=== PATIENT | male | born 1960 | race Hispanic/Latino ===

== ENCOUNTER 2020-03-13 19:44 | Emergency (ER) | payer SELFPAY ==
--- NOTE | 2020-03-13 20:56 | Event Note ---
ED Screening Note Date of service: 03/13/20 Time: 20:55 ED Screening Note: Patient complains of seizure that occurred around 7 PM today Denies head trauma or head pain States compliance with Depakote This initial assessment/diagnostic orders/clinical plan/treatment(s) is/are subject to change based on patients health status, clinical progression and re- assessment by fellow clinical providers in the ED. Further treatment and workup at subsequent clinical providers discretion. Patient/guardian urged not to elope from the ED as their condition may be serious if not clinically assessed and managed. Initial orders include: Labs EKG
[2020-03-13 21:04] VITALS: BP 136/87
[2020-03-13 21:51] LABS: Basophils % (Auto) 0.7 % (0.0-1.8); Eosinophils # (Auto) 0.1 K/mm3 (0.0-0.4); Eosinophils % (Auto) 1.7 % (0.0-4.3); Hemoglobin 13.2 gm/dl (11.8-15.2); Lymphocytes % (Auto) 24.9 % (13.4-35.0); Mean Corpuscular HGB Conc 35 % (32-34); Mean Corpuscular Volume 94 fl (84-94); Monocytes # (Auto) 0.4 K/mm3 (0.0-0.8); Monocytes % (Auto) 9.1 % (0.0-7.3); Platelet Count 131 K/mm3 (140-440); Red Blood Count 4.05 M/mm3 (3.65-5.03); Red Cell Distribution Width 13.1 % (13.2-15.2)
[2020-03-13 22:10] LABS: Alanine Aminotransferase 11 units/L (7-56); Albumin 4.1 g/dL (3.9-5); BUN/Creatinine Ratio 15; Blood Urea Nitrogen 12 mg/dL (9-20); Calcium 9.5 mg/dL (8.4-10.2); Hemolysis Index 14
== END 2020-03-13 21:00 | disposition left against medical advice (07) ==
LOC: ED 19:44
DX: G40.909 Epilepsy, unspecified, not intractable, without status epilepticus (principal); Z53.21 Procedure and treatment not carried out due to patient leaving prior to being seen by health care provider
CPT/HCPCS: 36415; 80053; 80164; 83735; 85025

== ENCOUNTER 2020-05-19 12:53 | Emergency (ER) | payer SELFPAY ==
--- NOTE | 2020-05-19 13:40 | Emergency Department Report ---
Blank Doc - Documentation Documentation: 60-year-old male that presents with chest pain and shortness of breath. 1- This initial assessment/diagnostic orders/clinical plan/ treatment(s) is/are subject to change based on pt's health status, clinical progression and re- assessment by fellow clinical providers in the ED. Further treatment and workup at subsequent clinical provers discretion. Patient/guardians urged not to elope from ED as their condition may be serious if not clinically assessed and managed. 2-cardiac workup
--- NOTE | 2020-05-19 13:51 | XRay Report ---
CHEST 2 VIEWS INDICATION: Chest Pain. COMPARISON: None FINDINGS: SUPPORT DEVICES: None. HEART: Within normal limits. LUNGS/PLEURA: No acute air space or interstitial disease. No pneumothorax. ADDITIONAL FINDINGS: None. IMPRESSION: 1. No acute findings. Signer Name: King Xiong MD Signed: 05/19/2020 1:47 PM Workstation Name: [id number]
--- NOTE | 2020-05-19 14:12 | Emergency Department Report ---
ED General Adult HPI - General Chief complaint: Chest Pain Stated complaint: CHEST PAIN/THINKS HE HAD A STROKE Time Seen by Provider: 05/19/20 13:38 Source: patient Mode of arrival: Ambulatory Limitations: No Limitations - History of Present Illness Initial comments: The patient presents to the emergency department the chief complaint of chest pain that started on Tuesday and has been continuous since that time. Chest pain is located on left side of the chest and denies any radiation of chest pain. Patient states on Tuesday he also passed out. Patient states that he does not know how long he was blacked out. He denies shortness of breath, ab dominal pain, headache. -: Sudden Location: chest Radiation: non-radiation Severity scale (0 -10): 2 Consistency: constant Improves with: none Worsens with: none Associated Symptoms: denies other symptoms Treatments Prior to Arrival: none - Related Data Allergies Allergy/AdvReac Type Severity Reaction Status Date / Time Penicillins Allergy Hives Verified 05/19/20 13:01 ED Review of Systems ROS: Stated complaint: CHEST PAIN/THINKS HE HAD A STROKE Other details as noted in HPI Comment: All other systems reviewed and negative Constitutional: denies: chills, fever Eyes: denies: eye pain, eye discharge, vision change ENT: denies: ear pain, throat pain Respiratory: denies: cough, shortness of breath, wheezing Cardiovascular: chest pain. denies: palpitations Endocrine: no symptoms reported Gastrointestinal: denies: abdominal pain, nausea, diarrhea Genitourinary: denies: urgency, dysuria Musculoskeletal: denies: back pain, joint swelling, arthralgia Skin: denies: rash, lesions Neurological: denies: headache, weakness, paresthesias Psychiatric: denies: anxiety, depression Hematological/Lymphatic: denies: easy bleeding, easy bruising ED Past Medical Hx - Past Medical History Hx Seizures: Yes - Social History Smoking Status: Never Smoker ED Physical Exam - General Limitations: No Limitations General appearance: alert, in no apparent distress - Head Head exam: Present: atraumatic, normocephalic - Eye Eye exam: Present: normal appearance, PERRL, EOMI - ENT ENT exam: Present: mucous membranes moist - Neck Neck exam: Present: normal inspection - Respiratory Respiratory exam: Present: normal lung sounds bilaterally. Absent: respiratory distress - Cardiovascular Cardiovascular Exam: Present: regular rate, normal rhythm. Absent: systolic murmur, diastolic murmur, rubs, gallop - GI/Abdominal GI/Abdominal exam: Present: soft, normal bowel sounds. Absent: distended, tenderness - Rectal Rectal exam: Present: deferred - Extremities Exam Extremities exam: Present: normal inspection - Back Exam Back exam: Present: normal inspection - Neurological Exam Neurological exam: Present: alert, oriented X3, CN II-XII intact. Absent: motor sensory deficit - Psychiatric Psychiatric exam: Present: normal affect, normal mood - Skin Skin exam: Present: warm, dry, intact, normal color. Absent: rash ED Course Vital Signs 05/19/20 05/19/20 05/19/20 13:06 13:57 13:59 Temperature 98.7 F Pulse Rate 71 63 Respiratory 18 16 16 Rate Blood Pressure 135/90 Blood Pressure 143/84 [Left] O2 Sat by Pulse 97 100 Oximetry 05/19/20 05/19/20 15:26 16:56 Temperature Pulse Rate 57 L 77 Respiratory 16 18 Rate Blood Pressure Blood Pressure 143/77 137/84 [Left] O2 Sat by Pulse 99 98 Oximetry ED Medical Decision Making - Lab Data Result diagrams: 05/19/20 14:38 05/19/20 14:38 Lab Results 05/19/20 05/19/20 05/19/20 Range/Units 14:17 14:38 14:38 WBC 5.5 (4.5-11.0) K/mm3 RBC 4.48 (3.65-5.03) M/mm3 Hgb 14.0 (11.8-15.2) gm/dl Hct 41.2 (35.5-45.6) % MCV 92 (84-94) fl MCH 31 (28-32) pg MCHC 34 (32-34) % RDW 13.9 (13.2-15.2) % Plt Count 179 (140-440) K/mm3 Lymph % (Auto) 23.7 (13.4-35.0) % [place] % (Auto) 6.7 (0.0-7.3) % Eos % (Auto) 3.5 (0.0-4.3) % Baso % (Auto) 0.6 (0.0-1.8) % Lymph # (Auto) 1.3 (1.2-5.4) K/mm3 [place] # (Auto) 0.4 (0.0-0.8) K/mm3 Eos # (Auto) 0.2 (0.0-0.4) K/mm3 Baso # (Auto) 0.0 (0.0-0.1) K/mm3 Seg Neutrophils % 65.5 (40.0-70.0) % Seg Neutrophils # 3.6 (1.8-7.7) K/mm3 PT 14.9 (12.2-14.9) Sec. INR 1.17 H (0.87-1.13) APTT 29.7 (24.2-36.6) Sec. D-Dimer 222.97 (0-234) ng/mlDDU Sodium (137-145) mmol/L Potassium (3.6-5.0) mmol/L Chloride (98-107) mmol/L Carbon Dioxide (22-30) mmol/L Anion Gap mmol/L BUN (9-20) mg/dL Creatinine (0.8-1.3) mg/dL Estimated GFR ml/min BUN/Creatinine Ratio % Glucose (75-100) mg/dL Calcium (8.4-10.2) mg/dL Magnesium (1.7-2.3) mg/dL Total Bilirubin (0.1-1.2) mg/dL AST (5-40) units/L ALT (7-56) units/L Alkaline Phosphatase (35-129) units/L Troponin T (0.00-0.029) ng/mL Total Protein (6.3-8.2) g/dL Albumin (3.9-5) g/dL Albumin/Globulin Ratio % Urine Color Yellow (Yellow) Urine Turbidity Clear (Clear) Urine pH 6.0 (5.0-7.0) Ur Specific [place] 1.011 (1.003-1.030) Urine Protein <15 mg/dl (Negative) mg/dL Urine Glucose (UA) Neg (Negative) mg/dL Urine Ketones Neg (Negative) mg/dL Urine Blood Sm (Negative) Urine Nitrite Neg (Negative) Urine Bilirubin Neg (Negative) Urine Urobilinogen < 2.0 (<2.0) mg/dL Ur Leukocyte Esterase Neg (Negative) Urine WBC (Auto) 1.0 (0.0-6.0) /HPF Urine RBC (Auto) 3.0 (0.0-6.0) /HPF Urine Mucus Few /HPF 05/19/20 05/19/20 05/19/20 Range/Units 14:38 14:38 16:53 WBC (4.5-11.0) K/mm3 RBC (3.65-5.03) M/mm3 Hgb (11.8-15.2) gm/dl Hct (35.5-45.6) % MCV (84-94) fl MCH (28-32) pg MCHC (32-34) % RDW (13.2-15.2) % Plt Count (140-440) K/mm3 Lymph % (Auto) (13.4-35.0) % [place] % (Auto) (0.0-7.3) % Eos % (Auto) (0.0-4.3) % Baso % (Auto) (0.0-1.8) % Lymph # (Auto) (1.2-5.4) K/mm3 [place] # (Auto) (0.0-0.8) K/mm3 Eos # (Auto) (0.0-0.4) K/mm3 Baso # (Auto) (0.0-0.1) K/mm3 Seg Neutrophils % (40.0-70.0) % Seg Neutrophils # (1.8-7.7) K/mm3 PT (12.2-14.9) Sec. INR (0.87-1.13) APTT (24.2-36.6) Sec. D-Dimer (0-234) ng/mlDDU Sodium 141 (137-145) mmol/L Potassium 4.5 (3.6-5.0) mmol/L Chloride 105.5 (98-107) mmol/L Carbon Dioxide 32 H (22-30) mmol/L Anion Gap 8 mmol/L BUN 6 L (9-20) mg/dL Creatinine 0.7 L (0.8-1.3) mg/dL Estimated GFR > 60 ml/min BUN/Creatinine Ratio 9 % Glucose 95 (75-100) mg/dL Calcium 9.0 (8.4-10.2) mg/dL Magnesium 2.20 (1.7-2.3) mg/dL Total Bilirubin 0.40 (0.1-1.2) mg/dL AST 19 (5-40) units/L ALT 12 (7-56) units/L Alkaline Phosphatase 74 (35-129) units/L Troponin T < 0.010 < 0.010 (0.00-0.029) ng/mL Total Protein 6.9 (6.3-8.2) g/dL Albumin 4.1 (3.9-5) g/dL Albumin/Globulin Ratio 1.5 % Urine Color (Yellow) Urine Turbidity (Clear) Urine pH (5.0-7.0) Ur Specific [place] (1.003-1.030) Urine Protein (Negative) mg/dL Urine Glucose (UA) (Negative) mg/dL Urine Ketones (Negative) mg/dL Urine Blood (Negative) Urine Nitrite (Negative) Urine Bilirubin (Negative) Urine Urobilinogen (<2.0) mg/dL Ur Leukocyte Esterase (Negative) Urine WBC (Auto) (0.0-6.0) /HPF Urine RBC (Auto) (0.0-6.0) /HPF Urine Mucus /HPF - EKG Data -: EKG Interpreted by Nc EKG shows normal: sinus rhythm Rate: bradycardia - Radiology Data Radiology results: report reviewed - Medical Decision Making Discussed results with patient Critical care attestation.: If time is entered above; I have spent that time in minutes in the direct care of this critically ill patient, excluding procedure time. ED Disposition Clinical Impression: Nonspecific chest pain, Vasovagal episode Disposition: TO HOME OR SELFCARE Is pt being admited?: No Does the pt Need Aspirin: No Condition: Stable Instructions: Chest Pain (ED), Syncope (ED), Nonspecific Chest Pain, Adult, Syncope, [id number], Syncope Additional Instructions: return if worse Referrals: PRIMARY CARE, [Primary Care Provider] - 3-5 Days DAVID COX MD [Staff Physician] - 3-5 Days Time of Disposition: 17:46
--- NOTE | 2020-05-19 14:42 | Cat Scan Report ---
CT head/brain wo con INDICATION: MAIN. TECHNIQUE: Routine CT head. All CT scans at this location are performed using CT dose reduction for A YI by means of automated exposure control. COMPARISON: None. FINDINGS: Intracranial: Pinto-white matter differentiation is maintained. No intracranial hemorrhage. No extra a xial collection. No hydrocephalus. No herniation. Sinuses: Paranasal sinuses and mastoid air cells are essentially clear. Orbits: Globes are intact. Calvarium: No acute fracture. IMPRESSION: 1. No acute intracranial abnormality. Signer Name: Hal Swan MD Signed: 05/19/2020 2:37 PM Workstation Name: [id number]
--- NOTE | 2020-05-19 15:09 | XRay Report ---
ABDOMEN 1 VIEW 05/19/2020 2:01 PM INDICATION / CLINICAL INFORMATION: Chest and abdominal pain. COMPARISON: None available. FINDINGS: TUBES / LINES: None. BOWEL GAS PATTERN: There is a celv-hu-oknchraw amount of stool throughout the colon. I see no evidenc e of bowel obstruction or mass effect. FREE AIR / EXTRALUMINAL GAS: None. ADDITIONAL FINDINGS: There is mild to moderate lower lumbar spondylosis. IMPRESSION: No acute abnormality. Signer Name: Raudel Hernandez MD Signed: 05/19/2020 3:04 PM Workstation Name: [id number]
[2020-05-19 15:15] LABS: Basophils % (Auto) 0.6 % (0.0-1.8); Eosinophils # (Auto) 0.2 K/mm3 (0.0-0.4); Eosinophils % (Auto) 3.5 % (0.0-4.3); Hematocrit 41.2 % (35.5-45.6); Lymphocytes # (Auto) 1.3 K/mm3 (1.2-5.4); Lymphocytes % (Auto) 23.7 % (13.4-35.0); Mean Corpuscular HGB Conc 34 % (32-34); Mean Corpuscular Volume 92 fl (84-94); Monocytes # (Auto) 0.4 K/mm3 (0.0-0.8); Monocytes % (Auto) 6.7 % (0.0-7.3); Platelet Count 179 K/mm3 (140-440); Red Blood Count 4.48 M/mm3 (3.65-5.03); Red Cell Distribution Width 13.9 % (13.2-15.2)
[2020-05-19 15:25] LABS: INR 1.17 (0.87-1.13)
[2020-05-19 15:36] LABS: Bilirubin,Urine NEG (Negative); Blood,Urine SM (Negative); Color,Urine Yellow (Yellow); Mucus,Urine FEW /HPF; Protein,Urine <15 mg/dL mg/dL (Negative); Urobilinogen,Urine < 2.0 mg/dL (<2.0)
[2020-05-19 15:37] LABS: Partial Thromboplastin Time 29.7 Sec. (24.2-36.6)
[2020-05-19 15:39] LABS: Alanine Aminotransferase 12 units/L (7-56); Albumin 4.1 g/dL (3.9-5); Blood Urea Nitrogen 6 mg/dL (9-20); Hemolysis Index 4
[2020-05-19 15:50] LABS: BUN/Creatinine Ratio 9
[2020-05-19 18:08] VITALS: BP 125/86
== END 2020-05-19 18:08 | disposition home or self-care (01) ==
LOC: ED 12:53
DX: R55 Syncope and collapse (principal); R07.9 Chest pain, unspecified; Z88.0 Allergy status to penicillin; Z86.69 Personal history of other diseases of the nervous system and sense organs
CPT/HCPCS: 36415; 70450; 71046; 74018; 80053; 81001; 83735; 84484; 85025; 85379; 85610; 85730; 93005

== ENCOUNTER 2020-05-29 11:47 | Emergency (ER) | payer SELFPAY ==
[2020-05-29 11:55] VITALS: BP 152/91
--- NOTE | 2020-05-29 12:00 | Emergency Department Report ---
- General Chief Complaint: Fever Stated Complaint: FEVER Time Seen by Provider: 05/29/20 11:52 Source: patient Mode of arrival: Ambulatory Limitations: No Limitations - History of Present Illness Initial Comments: 60-year-old male with a past medical history of hypertension and seizure disorder presents to the ER today with complaints of URI symptoms. Patient states that his symptoms started yesterday. He reports nonproductive cough, rhinorrhea, nasal congestion and sore throat since yesterday. He denies any fever, chills, shortness of breath, wheezing, vomiting or diarrhea. He denies any ill contacts or recent travel. He denies any known COVID-19 contacts. He reports no GI or symptoms. MD Complaint: cough -: days(s) (1) - Related Data Previous Rx's Medication Instructions Recorded Last Taken Type Benzonatate [Tessalon Perles] 100 mg PO Q8HR PRN #30 capsule 05/29/20 Unknown Rx Cetirizine HCl [Zyrtec 10mg tab] 10 mg PO DAILY #15 tablet 05/29/20 Unknown Rx Allergies Allergy/AdvReac Type Severity Reaction Status Date / Time No Known Allergies Allergy Unverified 05/29/20 11:50 ED Review of Systems ROS: Stated complaint: FEVER Other details as noted in HPI Comment: All other systems reviewed and negative Constitutional: denies: chills, fever Eyes: denies: eye pain, eye discharge, vision change ENT: throat pain. denies: ear pain Respiratory: cough. denies: shortness of breath, SOB with exertion, SOB at rest, stridor, wheezing Cardiovascular: denies: chest pain, palpitations, dyspnea on exertion, edema, syncope, paroxysmal nocturnal dyspnea Gastrointestinal: denies: abdominal pain, nausea, vomiting, diarrhea, constipation, hematemesis, melena Musculoskeletal: denies: back pain, joint swelling, arthralgia Skin: denies: rash, lesions Neurological: denies: headache, weakness, paresthesias Psychiatric: denies: anxiety, depression ED Past Medical Hx - Past Medical History Previous Medical History?: No Hx Hypertension: Yes Hx Seizures: Yes - Surgical History Past Surgical History?: No - Social History Smoking Status: Never Smoker Substance Use Type: None - Medications Home Medications: Home Medications Medication Instructions Recorded Confirmed Last Taken Type Benzonatate [Tessalon Perles] 100 mg PO Q8HR PRN #30 capsule 05/29/20 Unknown Rx Cetirizine HCl [Zyrtec 10mg tab] 10 mg PO DAILY #15 tablet 05/29/20 Unknown Rx ED Physical Exam - General Limitations: No Limitations General appearance: alert, in no apparent distress - Head Head exam: Present: atraumatic, normocephalic, normal inspection - Eye Eye exam: Present: normal appearance, PERRL, EOMI Pupils: Present: normal accommodation - ENT ENT exam: Present: normal exam, mucous membranes moist - Neck Neck exam: Present: normal inspection, full ROM. Absent: meningismus - Respiratory Respiratory exam: Present: normal lung sounds bilaterally. Absent: respiratory distress - Cardiovascular Cardiovascular Exam: Present: regular rate, normal rhythm, normal heart sounds - GI/Abdominal GI/Abdominal exam: Present: soft. Absent: distended, tenderness, guarding - Neurological Exam Neurological exam: Present: alert, oriented X3, CN II-XII intact, normal gait - Psychiatric Psychiatric exam: Present: normal affect, normal mood - Skin Skin exam: Present: intact ED Course Vital Signs 05/29/20 11:53 Temperature 97.9 F Pulse Rate 62 Respiratory 24 Rate Blood Pressure 152/91 O2 Sat by Pulse 96 Oximetry ED Medical Decision Making - Radiology Data Radiology results: report reviewed Patient: JONN IVY MR#: [id number] : 1960 Acct:[id number] Age/Sex: 60 / M ADM Date: 05/29/20 Loc: ED Attending Dr: Ordering Physician: ROSIBEL SALCIDO Date of Service: 05/29/20 Procedure(s): XR chest routine 2V Accession Number(s): [id number] cc: ROSIBEL SALCIDO Fluoro Time In Minutes: XR chest routi ne 2V INDICATION / CLINICAL INFORMATION: Cough COMPARISON: 05/19/2020 FINDINGS: SUPPORT DEVICES: None. HEART / MEDIASTINUM: No significant abnormality. LUNGS / PLEURA: Lungs are clear. Costophrenic sulci are sharp. No pneumothorax. ADDITIONAL FINDINGS: No significant additional findings. IMPRESSION: 1. No acute findings. Signer Name: Hal Swan MD Signed: 05/29/2020 12:18 PM Workstation Name: [email or web address] Transcribed By: Dictated By: Hal Swan MD Electronically Authenticated By: Hal Swan MD Signed Date/Time: 05/29/20 1218 - Medical Decision Making 60-year-old male with a past medical history of hypertension and seizure disorder presents to the ER today with complaints of URI symptoms. Patient states that his symptoms started yesterday. He reports nonproductive cough, rhinorrhea, nasal congestion and sore throat since yesterday. He denies any fever, chills, shortness of breath, wheezing, vomiting or diarrhea. He denies any ill contacts or recent travel. He denies any known COVID-19 contacts. He reports no GI or symptoms. 1230: CXR show nothing acute. The patient is resting comfortably, is alert and in no distress. The patient has normal mental status and is neurologically intact. The patient appears well and there is no significant dehydration. There is no respiratory distress and no signs of systemic toxicity. The history, exam, diagnostic testing and current condition do not demonstrate an infectious process such as meningitis, severe pneumonia, retropharyngeal abscess, epiglottitis, sepsis or other serious bacterial infection requiring further testing, treatment, consultation or admission at this time. The vital signs have been stable. The patient's condition is stable and appropriate for discharge. The patient will pursue further outpatient evaluation with the primary care physician or other designated. Critical care attestation.: If time is entered above; I have spent that time in minutes in the direct care of this critically ill patient, excluding procedure time. ED Disposition Clinical Impression: URI with cough and congestion Disposition: DC-01 TO HOME OR SELFCARE Is pt being admited?: No Does the pt Need Aspirin: No Condition: Stable Instructions: Cough, Adult, [id number], Upper Respiratory Infection, Adult, [id number] Additional Instructions: Take the cough medication and zyrtec as prescribed. You can take tylenol or motrin as needed for pain. I recommend out patient COVID 19 test. Return to ED if symptoms changes or worsens. Prescriptions: Benzonatate [Tessalon Perles] 100 mg PO Q8HR PRN #30 capsule PRN Reason: Cough Cetirizine HCl [Zyrtec 10mg tab] 10 mg PO DAILY #15 tablet Referrals: DAVID COX MD [Staff Physician] - 3-5 Days Forms: Work/School Release Form(ED) Time of Disposition: 12:28
--- NOTE | 2020-05-29 12:22 | XRay Report ---
XR chest routine 2V INDICATION / CLINICAL INFORMATION: Cough COMPARISON: 05/19/2020 FINDINGS: SUPPORT DEVICES: None. HEART / MEDIASTINUM: No significant abnormality. LUNGS / PLEURA: Lungs are clear. Costophrenic sulci are sharp. No pneumothorax. ADDITIONAL FINDINGS: No significant additional findings. IMPRESSION: 1. No acute findings. Signer Name: Hal Swan MD Signed: 05/29/2020 12:18 PM Workstation Name: [id number]
== END 2020-05-29 12:32 | disposition home or self-care (01) ==
LOC: ED 11:47
DX: J06.9 Acute upper respiratory infection, unspecified (principal); I10 Essential (primary) hypertension; G40.909 Epilepsy, unspecified, not intractable, without status epilepticus; Z79.899 Other long term (current) drug therapy
CPT/HCPCS: 71046; 99283

== ENCOUNTER 2020-07-29 12:01 | Emergency (ER) | payer SELFPAY ==
[2020-07-29 13:17] VITALS: BP 114/75
--- NOTE | 2020-07-29 14:14 | Event Note ---
ED Screening Note Date of service: 07/29/20 Time: 14:13 ED Screening Note: 60-year-old male presents to the ER today with complaints of lower abdominal pain. Onset yesterday. He denies any associated nausea, vomiting, diarrhea, UTI symptoms, fever or chills. He denies any abdominal surgeries. Past medical history include hypertension and seizure disorder This initial assessment/diagnostic orders/clinical plan/treatment(s) is/are subject to change based on patients health status, clinical progression and re- assessment by fellow clinical providers in the ED. Further treatment and workup at subsequent clinical providers discretion. Patient/guardian urged not to elope from the ED as their condition may be serious if not clinically assessed and managed. Initial orders include: Abdominal pain order set.
[2020-07-29 14:31] LABS: Bilirubin,Urine MOD (Negative); Blood,Urine NEG (Negative); Color,Urine Amber (Yellow); Mucus,Urine 3+ /HPF
[2020-07-29 14:40] LABS: Alanine Aminotransferase 9 units/L (7-56); Albumin 4.3 g/dL (3.9-5); BUN/Creatinine Ratio 7; Blood Urea Nitrogen 7 mg/dL (9-20); Calcium 8.9 mg/dL (8.4-10.2); Hemolysis Index 9
[2020-07-29 14:50] LABS: Basophils % (Auto) 0.4 % (0.0-1.8); Eosinophils # (Auto) 0.1 K/mm3 (0.0-0.4); Eosinophils % (Auto) 1.8 % (0.0-4.3); Hematocrit 43.8 % (35.5-45.6); Hemoglobin 15.2 gm/dl (11.8-15.2); Lymphocytes # (Auto) 1.3 K/mm3 (1.2-5.4); Lymphocytes % (Auto) 17.7 % (13.4-35.0); Mean Corpuscular HGB Conc 35 % (32-34); Mean Corpuscular Volume 91 fl (84-94); Monocytes # (Auto) 0.6 K/mm3 (0.0-0.8); Monocytes % (Auto) 8.1 % (0.0-7.3); Platelet Count 120 K/mm3 (140-440); Red Cell Distribution Width 14.5 % (13.2-15.2)
[2020-07-29 15:00] LABS: Bilirubin,Direct < 0.2 mg/dL (0-0.2)
[2020-07-29 15:04] LABS: Ictotest,Urine Negative (Negative)
--- NOTE | 2020-07-29 17:57 | Cat Scan Report ---
CT ABDOMEN AND PELVIS WITH CONTRAST INDICATION: Abdominal Pain CONTRAST: 100 cc Omnipaque 300 IV COMPARISON: None available. All CT scans at this location are performed using CT dose reduction for ALARA by means of automated e xposure control. FINDINGS: Lung bases are clear. No pneumoperitoneum is seen. I see no abnormalities of the gallbladde r, bile ducts, pancreas, adrenals, or kidneys. Minimal hypodensity in the posterior segment of the ri ght lobe of the liver is indeterminate but probably a small cyst. Spleen is at the upper end of the n ormal range in size and has a length of 14.6 cm. Liver is not enlarged. No lymphadenopathy is seen. No urinary or bowel obstructive changes are noted. No free fluid is seen. Appendix is not visualized. No inflammatory changes are seen. IMPRESSION: No acute abnormalities are seen Signer Name: Jonathon Lima MD Signed: 07/29/2020 5:52 PM Workstation Name: [id number]
--- NOTE | 2020-07-29 18:16 | Emergency Department Report ---
ED Abdominal Pain HPI - General Chief Complaint: Abdominal Pain Stated Complaint: ABD PAIN Time Seen by Provider: 07/29/20 13:36 Source: patient Mode of arrival: Ambulatory Limitations: No Limitations - History of Present Illness Initial Comments: Patient is a 60-year-old male who presents emergency room with complaints of upper abdominal pain and lower back pain that began a week ago. Patient states that today he began having nausea and had one episode of vomiting. He denies any diarrhea. He states he had a normal bowel movement this morning. He states that his pain is usually worse after eating. Patient states that he was concerned because his mother had gallbladder disease. He denies any hematochezia, hematemesis, melena, pain or swelling in the testicles, fever, urinary symptoms. Past medical history of seizures. No allergies to me dications. He denies any tobacco use or alcohol use. 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 - Related Data Previous Rx's Medication Instructions Recorded Last Taken Type Benzonatate [Tessalon Perles] 100 mg PO Q8HR PRN #30 capsule 05/29/20 Unknown Rx Cetirizine HCl [Zyrtec 10mg tab] 10 mg PO DAILY #15 tablet 05/29/20 Unknown Rx Famotidine [Pepcid] 40 mg PO QHS #30 tablet 07/29/20 Unknown Rx Sucralfate [Carafate] 1 gm PO ACHS 7 Days #21 tablet 07/29/20 Unknown Rx Allergies Allergy/AdvReac Type Severity Reaction Status Date / Time No Known Allergies Allergy Verified 07/29/20 13:17 ED Review of Systems ROS: Stated complaint: ABD PAIN Other details as noted in HPI Comment: All other systems reviewed and negative ED Past Medical Hx - Past Medical History Hx Hypertension: Yes Hx Seizures: Yes - Social History Smoking Status: Never Smoker Substance Use Type: None - Medications Home Medications: Home Medications Medication Instructions Recorded Confirmed Last Taken Type Benzonatate [Tessalon Perles] 100 mg PO Q8HR PRN #30 capsule 05/29/20 Unknown Rx Cetirizine HCl [Zyrtec 10mg tab] 10 mg PO DAILY #15 tablet 05/29/20 Unknown Rx Famotidine [Pepcid] 40 mg PO QHS #30 tablet 07/29/20 Unknown Rx Sucralfate [Carafate] 1 gm PO ACHS 7 Days #21 tablet 07/29/20 Unknown Rx ED Physical Exam - General Limitations: No Limitations General appearance: alert, in no apparent distress - Head Head exam: Present: atraumatic, normocephalic - Eye Eye exam: Present: normal appearance - ENT ENT exam: Present: mucous membranes moist - Respiratory Respiratory exam: Present: normal lung sounds bilaterally. Absent: respiratory distress, wheezes, rales, rhonchi, stridor, chest wall tenderness, accessory muscle use, decreased breath sounds, prolonged expiratory - Cardiovascular Cardiovascular Exam: Present: regular rate, normal rhythm, normal heart sounds. Absent: systolic murmur, diastolic murmur, rubs, gallop - GI/Abdominal GI/Abdominal exam: Present: soft, tenderness (epigastric), normal bowel sounds. Absent: distended, guarding, rebound, rigid - Neurological Exam Neurological exam: Present: alert, oriented X3 - Psychiatric Psychiatric exam: Present: normal affect, normal mood - Skin Skin exam: Present: warm, dry, intact ED Course Vital Signs 07/29/20 07/29/20 13:13 18:55 Temperature 98.6 F Pulse Rate 56 L 52 L Respiratory 20 16 Rate Blood Pressure 114/75 O2 Sat by Pulse 98 97 Oximetry ED Medical Decision Making - Lab Data Result diagrams: 07/29/20 14:05 07/29/20 14:05 Lab Results 07/29/20 07/29/20 07/29/20 Range/Units 14:05 14:05 14:05 WBC 7.2 (4.5-11.0) K/mm3 RBC 4.80 (3.65-5.03) M/mm3 Hgb 15.2 (11.8-15.2) gm/dl Hct 43.8 (35.5-45.6) % MCV 91 (84-94) fl MCH 32 (28-32) pg MCHC 35 H (32-34) % RDW 14.5 (13.2-15.2) % Plt Count 120 L (140-440) K/mm3 Lymph % (Auto) 17.7 (13.4-35.0) % [place] % (Auto) 8.1 H (0.0-7.3) % Eos % (Auto) 1.8 (0.0-4.3) % Baso % (Auto) 0.4 (0.0-1.8) % Lymph # (Auto) 1.3 (1.2-5.4) K/mm3 [place] # (Auto) 0.6 (0.0-0.8) K/mm3 Eos # (Auto) 0.1 (0.0-0.4) K/mm3 Baso # (Auto) 0.0 (0.0-0.1) K/mm3 Seg Neutrophils % 72.0 H (40.0-70.0) % Seg Neutrophils # 5.2 (1.8-7.7) K/mm3 Sodium 141 (137-145) mmol/L Potassium 3.7 (3.6-5.0) mmol/L Chloride 102.1 (98-107) mmol/L Carbon Dioxide 28 (22-30) mmol/L Anion Gap 15 mmol/L BUN 7 L (9-20) mg/dL Creatinine 1.0 (0.8-1.3) mg/dL Estimated GFR > 60 ml/min BUN/Creatinine Ratio 7 % Glucose 96 (75-100) mg/dL Calcium 8.9 (8.4-10.2) mg/dL Total Bilirubin 0.70 (0.1-1.2) mg/dL Direct Bilirubin < 0.2 (0-0.2) mg/dL Indirect Bilirubin 0.5 mg/dL AST 19 (5-40) units/L ALT 9 (7-56) units/L Alkaline Phosphatase 91 (35-129) units/L Total Protein 7.1 (6.3-8.2) g/dL Albumin 4.3 (3.9-5) g/dL Albumin/Globulin Ratio 1.5 % Lipase 27 (13-60) units/L Urine Color (Yellow) Urine Turbidity (Clear) Urine pH (5.0-7.0) Ur Specific [place] (1.003-1.030) Urine Protein (Negative) mg/dL Urine Glucose (UA) (Negative) mg/dL Urine Ketones (Negative) mg/dL Urine Blood (Negative) Urine Nitrite (Negative) Urine Bilirubin (Negative) Urine Ictotest (Negative) Urine Urobilinogen (<2.0) mg/dL Ur Leukocyte Esterase (Negative) Urine WBC (Auto) (0.0-6.0) /HPF Urine RBC (Auto) (0.0-6.0) /HPF Urine Mucus /HPF 07/29/20 Range/Units Unknown WBC (4.5-11.0) K/mm3 RBC (3.65-5.03) M/mm3 Hgb (11.8-15.2) gm/dl Hct (35.5-45.6) % MCV (84-94) fl MCH (28-32) pg MCHC (32-34) % RDW (13.2-15.2) % Plt Count (140-440) K/mm3 Lymph % (Auto) (13.4-35.0) % [place] % (Auto) (0.0-7.3) % Eos % (Auto) (0.0-4.3) % Baso % (Auto) (0.0-1.8) % Lymph # (Auto) (1.2-5.4) K/mm3 [place] # (Auto) (0.0-0.8) K/mm3 Eos # (Auto) (0.0-0.4) K/mm3 Baso # (Auto) (0.0-0.1) K/mm3 Seg Neutrophils % (40.0-70.0) % Seg Neutrophils # (1.8-7.7) K/mm3 Sodium (137-145) mmol/L Potassium (3.6-5.0) mmol/L Chloride (98-107) mmol/L Carbon Dioxide (22-30) mmol/L Anion Gap mmol/L BUN (9-20) mg/dL Creatinine (0.8-1.3) mg/dL Estimated GFR ml/min BUN/Creatinine Ratio % Glucose (75-100) mg/dL Calcium (8.4-10.2) mg/dL Total Bilirubin (0.1-1.2) mg/dL Direct Bilirubin (0-0.2) mg/dL Indirect Bilirubin mg/dL AST (5-40) units/L ALT (7-56) units/L Alkaline Phosphatase (35-129) units/L Total Protein (6.3-8.2) g/dL Albumin (3.9-5) g/dL Albumin/Globulin Ratio % Lipase (13-60) units/L Urine Color [place] (Yellow) Urine Turbidity Hazy (Clear) Urine pH 6.0 (5.0-7.0) Ur Specific [place] 1.031 H (1.003-1.030) Urine Protein 100 mg/dl (Negative) mg/dL Urine Glucose (UA) Neg (Negative) mg/dL Urine Ketones 20 (Negative) mg/dL Urine Blood Neg (Negative) Urine Nitrite Neg (Negative) Urine Bilirubin Mod (Negative) Urine Ictotest Negative (Negative) Urine Urobilinogen 4.0 (<2.0) mg/dL Ur Leukocyte Esterase Neg (Negative) Urine WBC (Auto) 1.0 (0.0-6.0) /HPF Urine RBC (Auto) 14.0 (0.0-6.0) /HPF Urine Mucus 3+ /HPF Vital Signs 07/29/20 07/29/20 13:13 18:55 Temperature 98.6 F Pulse Rate 56 L 52 L Respiratory 20 16 Rate Blood Pressure 114/75 O2 Sat by Pulse 98 97 Oximetry - Radiology Data Radiology results: report reviewed Ordering Physician: ROSIBEL SALCIDO Date of Service: 07/29/20 Procedure(s): CT abdomen pelvis w con Accession Number(s): [id number] cc: ROSIBEL SALCIDO CT ABDOMEN AND PELVIS WITH CONTRAST INDICATION: Abdominal Pain CONTRAST: 100 cc Omnipaque 300 IV COMPARISON: None available. All CT scans at this location are performed using CT dose reduction for ALARA by means of automated exposure control. FINDINGS: Lung bases are clear. No pneumoperitoneum is seen. I see no abnormalities of the gallbladder, bile ducts, pancreas, adrenals, or kidneys. Minimal hypodensity in the posterior segment of the right lobe of the liver is indeterminate but probably a small cyst. Spleen is at the upper end of the normal range in size and has a length of 14.6 cm. Liver is not enlarged. No lymphadenopathy is seen. No urinary or bowel obstructive changes are noted. No free fluid is seen. Appendix is not visualized. No inflammatory changes are seen. IMPRESSION: No acute abnormalities are seen Signer Name: Jonathon Lima MD Signed: 07/29/2020 5:52 PM Workstation Name: [id number] Transcribed By: GJ Dictated By: Jonathon Lima MD Electronically Authenticated By: Jonathon Lima MD Signed Date/Time: 07/29/201751 DD/ 47 TD/TT: Print - Medical Decision Making Patient is a 60-year-old male who presents emergency room with complaints of upper abdominal pain and lower back pain that began a week ago. Patient states that today he began having nausea and had one episode of vomiting. He denies any diarrhea. He states he had a normal bowel movement this morning. He states that his pain is usually worse after eating. Patient states that he was c oncerned because his mother had gallbladder disease. He denies any hematochezia, hematemesis, melena, pain or swelling in the testicles, fever, urinary symptoms. Past medical history of seizures. No allergies to medications. He denies any tobacco use or alcohol use. 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 Vitals are stable. On exam patient has mild epigastric tenderness outpatient, no guarding, no rebound, no rigidity, no bowel sounds, no peritoneal signs. Labs are normal. UA without evidence of UTI. CT abdomen pelvis with IV contrast: IMPRESSION: No acute abnormalities are seen discussed all results with patient answered questions. Symptoms could be related to PUD versus GERD. Discussed the importance of GI follow-up and primary care follow-up. Discussed return precautions. Patient given prescription for Carafate and Pepcid. Advised p atient Please take medication as prescribed. Increase your water intake. Please follow the diet for acid reflux. Follow-up with your primary care doctor. Follow-up with a GI doctor. Return to emergency room for new or symptoms. Critical care attestation.: If time is entered above; I have spent that time in minutes in the direct care of this critically ill patient, excluding procedure time. ED Disposition Clinical Impression: Abdominal pain Qualifiers: Abdominal location: epigastric Qualified Code(s): R10.13 - Epigastric pain Nausea & vomiting Qualifiers: Vomiting type: unspecified Vomiting Intractability: non-intractable Qualified Code(s): R11.2 - Nausea with vomiting, unspecified Disposition: DC-01 TO HOME OR SELFCARE Is pt being admited?: No Does the pt Need Aspirin: No Condition: Stable Instructions: Peptic Ulcer, [id number], Food Choices for Gastroesophageal Reflux Disease, Adult Additional Instructions: Please take medication as prescribed. Increase your water intake. Please follow the diet for acid reflux. Follow-up with your primary care doctor. Follow-up with a GI doctor. Return to emergency room for new or symptoms. Prescriptions: Famotidine [Pepcid] 40 mg PO QHS #30 tablet Sucralfate [Carafate] 1 gm PO ACHS 7 Days #21 tablet Referrals: PRIMARY CAREMD [Primary Care Provider] - 2-3 Days DAVID COX MD [Staff Physician] - 2-3 Days [facility] [Provider Group] - 2-3 Days [facility], [LAB/CONTRACT] - 2-3 Days [facility] [Outside] - 2-3 Days [facility] [Provider Group] - 2-3 Days Time of Disposition: 18:14 Print Language: ANGOLAN
== END 2020-07-29 18:55 | disposition home or self-care (01) ==
LOC: ED 12:01
DX: R10.10 Upper abdominal pain, unspecified (principal); R11.2 Nausea with vomiting, unspecified; I10 Essential (primary) hypertension; Z79.899 Other long term (current) drug therapy; Z86.69 Personal history of other diseases of the nervous system and sense organs
CPT/HCPCS: 36415; 74177; 80048; 80076; 81001; 83690; 85025; 99284; Q9967

== ENCOUNTER 2021-04-09 23:39 | Emergency (ER) | payer SELFPAY ==
[2021-04-10] MEDS ORDERED: diphenhydrAMINE 25 MG CAP PO ONE (03:49)
[2021-04-10] MEDS ORDERED: METOCLOPRAMIDE 10 MG TAB PO ONE (03:53)
[2021-04-10] MEDS ORDERED: ACETAMINOPHEN 500 MG TAB PO ONE (03:53)
--- NOTE | 2021-04-10 05:54 | Emergency Department Report ---
ED General Adult HPI - General Chief complaint: Headache Stated complaint: HEADACHE Time Seen by Provider: 04/10/21 03:46 Source: patient Mode of arrival: Ambulatory Limitations: No Limitations - History of Present Illness Initial comments: Patient 61-year-old male who presents for headache frontal sharp x3 days. Patient has history of migraine headaches. Patient denies fevers or chills there is been no vomiting. There is mild photophobia. Patient denies any fall injury or trauma. States headache dates back to childhood. However patient is able to tolerate p.o. at this time. Patient is currently not taking migraine prophylaxis. Severity scale (0 -10): 6 - Related Data Previous Rx's Medication Instructions Recorded Last Taken Type Benzonatate [Tessalon Perles] 100 mg PO Q8HR PRN #30 capsule 05/29/20 Unknown Rx Cetirizine HCl [Zyrtec 10mg tab] 10 mg PO DAILY #15 tablet 05/29/20 Unknown Rx Famotidine [Pepcid] 40 mg PO QHS #30 tablet 07/29/20 Unknown Rx Sucralfate [Carafate] 1 gm PO ACHS 7 Days #21 tablet 07/29/20 Unknown Rx Acetaminophen [Acetaminophen TAB] 1,000 mg PO Q6HR PRN #60 tablet 04/10/21 Unknown Rx Metoclopramide [Reglan] 10 mg PO Q6H PRN #30 tablet 04/10/21 Unknown Rx diphenhydrAMINE [Benadryl CAP] 25 mg PO Q6HR PRN #30 capsule 04/10/21 Unknown Rx Allergies Allergy/AdvReac Type Severity Reaction Status Date / Time No Known Allergies Allergy Verified 07/29/20 13:17 ED Review of Systems ROS: Stated complaint: HEADACHE Other details as noted in HPI Constitutional: denies: chills, fever Eyes: denies: eye pain, eye discharge, vision change ENT: denies: ear pain, throat pain Respiratory: no symptoms reported Cardiovascular: denies: chest pain, palpitations, edema Endocrine: no symptoms reported Gastrointestinal: denies: abdominal pain, nausea, diarrhea Genitourinary: denies: urgency, dysuria Musculoskeletal: denies: back pain, joint swelling, arthralgia Skin: denies: rash, lesions Neurological: headache. denies: numbness, paresthesias, confusion, vertigo ED Past Medical Hx - Past Medical History Previous Medical History?: Yes Hx Hypertension: Yes Hx Seizures: Yes - Surgical History Past Surgical History?: No - Social History Smoking Status: Never Smoker Substance Use Type: None - Medications Home Medications: Home Medications Medication Instructions Recorded Confirmed Last Taken Type Benzonatate [Tessalon Perles] 100 mg PO Q8HR PRN #30 capsule 05/29/20 Unknown Rx Cetirizine HCl [Zyrtec 10mg tab] 10 mg PO DAILY #15 tablet 05/29/20 Unknown Rx Famotidine [Pepcid] 40 mg PO QHS #30 tablet 07/29/20 Unknown Rx Sucralfate [Carafate] 1 gm PO ACHS 7 Days #21 tablet 07/29/20 Unknown Rx Acetaminophen [Acetaminophen TAB] 1,000 mg PO Q6HR PRN #60 tablet 04/10/21 Unknown Rx Metoclopramide [Reglan] 10 mg PO Q6H PRN #30 tablet 04/10/21 Unknown Rx diphenhydrAMINE [Benadryl CAP] 25 mg PO Q6HR PRN #30 capsule 04/10/21 Unknown Rx ED Physical Exam - General Limitations: No Limitations General appearance: alert, in no apparent distress - Head Head exam: Present: atraumatic, normocephalic - Eye Eye exam: Present: normal appearance, PERRL, EOMI Pupils: Present: normal accommodation - ENT ENT exam: Present: normal orophraynx, mucous membranes moist, TM's normal bilaterally, normal external ear exam - Neck Neck exam: Present: normal inspection, full ROM. Absent: tenderness - Respiratory Respiratory exam: Present: normal lung sounds bilaterally. Absent: respiratory distress, wheezes, rales, rhonchi, stridor, chest wall tenderness - Cardiovascular Cardiovascular Exam: Present: regular rate, normal rhythm, normal heart sounds. Absent: systolic murmur, diastolic murmur, rubs, gallop - GI/Abdominal GI/Abdominal exam: Present: soft, normal bowel sounds. Absent: distended, tenderness, guarding - Rectal Rectal exam: Present: deferred. Absent: hemorrhoids, mass ED Course Vital Signs 04/09/21 04/10/21 23:41 04:14 Temperature 97.4 F L Pulse Rate 59 L Respiratory 18 16 Rate Blood Pressure 148/88 O2 Sat by Pulse 100 Oximetry ED Medical Decision Making - Medical Decision Making Patient advises headache is resolved. Plan DC to home with prescriptions, follow-up with primary care doctor for migraine prophylaxis. Patient verbalized agreement and understanding with discharge plan. Patient is currently alert oriented x3 patient is ambulatory with no acute distress. Critical care attestation.: If time is entered above; I have spent that time in minutes in the direct care of this critically ill patient, excluding procedure time. ED Disposition Clinical Impression: Migraine Qualifiers: Migraine type: without aura Status migrainosus presence: without status migrainosus Intractability: not intractable Qualified Code(s): G43.009 - Migraine without aura, not intractable, without status migrainosus Disposition: 01 HOME / SELF CARE / HOMELESS Is pt being admited?: No Does the pt Need Aspirin: No Condition: Stable Instructions: Migraine Headache Additional Instructions: Take medications as prescribed. Follow-up with your doctor in 2 to 3 days. Return to the emergency department if symptoms worsen Prescriptions: Acetaminophen [Acetaminophen TAB] 1,000 mg PO Q6HR PRN #60 tablet PRN Reason: Headache diphenhydrAMINE [Benadryl CAP] 25 mg PO Q6HR PRN #30 capsule PRN Reason: Headache Metoclopramide [Reglan] 10 mg PO Q6H PRN #30 tablet PRN Reason: Headache Referrals: JEREMIAH MENDIETA MD [Staff Physician] - 3-5 Days Forms: Work/School Release Form(ED) Time of Disposition: 06:21
[2021-04-10 09:03] VITALS: BP 132/70
== END 2021-04-10 06:49 | disposition home or self-care (01) ==
LOC: ED 23:39
DX: G43.909 Migraine, unspecified, not intractable, without status migrainosus (principal); I10 Essential (primary) hypertension
CPT/HCPCS: 99282

== ENCOUNTER 2021-05-02 00:43 | Emergency (ER) | payer SELFPAY ==
[2021-05-02] MEDS ORDERED: KETOROLAC 30 MG/1 ML INJ IM ONE (00:55)
--- NOTE | 2021-05-02 01:01 | Emergency Department Report ---
ED General Adult HPI - General Chief complaint: Chest Pain Stated complaint: CHEST PAIN Time Seen by Provider: 05/02/21 00:51 Source: patient Mode of arrival: Ambulatory Limitations: No Limitations - History of Present Illness Initial comments: Patient presents secondary to left flank pain. He states that he has been having left flank pain for the last week like somebody is hitting him with a hammer. The pain seems to wax and wane. It radiates into the left abdomen. He states that he has had some urinary frequency associated with this. He also reports having a hard bowel movements. Sometimes, the pain is on the right side. Sometimes this is on the left side. He states that he came in for evaluation and treatment because of the pain. He denies chest pain. Despite the fact that his chief complaint was chest pain, he tells me that he is not actually having any chest pain whatsoever. He states that he has not had chest pain. He is here because he has been having intermittent flank pain on the left. And then later states that sometimes this is on the right. He has not taken anything for this. He has never had symptoms like this before. He denies recent injury. Severity scale (0 -10): 8 - Related Data Previous Rx's Medication Instructions Recorded Last Taken Type Cetirizine HCl [Zyrtec 10mg tab] 10 mg PO DAILY #15 tablet 05/29/20 Unknown Rx Famotidine [Pepcid] 40 mg PO QHS #30 tablet 07/29/20 Unknown Rx Sucralfate [Carafate] 1 gm PO ACHS 7 Days #21 tablet 07/29/20 Unknown Rx Acetaminophen [Acetaminophen TAB] 1,000 mg PO Q6HR PRN #60 tablet 04/10/21 Unknown Rx Metoclopramide [Reglan] 10 mg PO Q6H PRN #30 tablet 04/10/21 Unknown Rx diphenhydrAMINE [Benadryl CAP] 25 mg PO Q6HR PRN #30 capsule 04/10/21 Unknown Rx Ibuprofen [Motrin] 600 mg PO Q8H PRN #20 tablet 05/02/21 Unknown Rx Allergies Allergy/AdvReac Type Severity Reaction Status Date / Time No Known Allergies Allergy Verified 07/29/20 13:17 ED Review of Systems ROS: Stated complaint: CHEST PAIN Other details as noted in HPI Comment: All other systems reviewed and negative Constitutional: denies: fever Eyes: denies: vision change ENT: denies: throat pain Respiratory: denies: cough Cardiovascular: denies: chest pain Endocrine: denies: unexplained weight loss Gastrointestinal: as per HPI Genitourinary: denies: hematuria Musculoskeletal: as per HPI Skin: denies: rash Neurological: denies: headache Hematological/Lymphatic: denies: easy bruising ED Past Medical Hx - Past Medical History Previous Medical History?: Yes Hx Hypertension: Yes Hx Seizures: Yes - Surgical History Past Surgical History?: No - Family History Family history: hypertension - Social History Smoking Status: Never Smoker Substance Use Type: None - Medications Home Medications: Home Medications Medication Instructions Recorded Confirmed Last Taken Type Cetirizine HCl [Zyrtec 10mg tab] 10 mg PO DAILY #15 tablet 05/29/20 Unknown Rx Famotidine [Pepcid] 40 mg PO QHS #30 tablet 07/29/20 Unknown Rx Sucralfate [Carafate] 1 gm PO ACHS 7 Days #21 tablet 07/29/20 Unknown Rx Acetaminophen [Acetaminophen TAB] 1,000 mg PO Q6HR PRN #60 tablet 04/10/21 Unknown Rx Metoclopramide [Reglan] 10 mg PO Q6H PRN #30 tablet 04/10/21 Unknown Rx diphenhydrAMINE [Benadryl CAP] 25 mg PO Q6HR PRN #30 capsule 04/10/21 Unknown Rx Ibuprofen [Motrin] 600 mg PO Q8H PRN #20 tablet 05/02/21 Unknown Rx ED Physical Exam - General Limitations: No Limitations, Other General appearance: alert (Pulse ox noted and normal), in no apparent distress - Head Head exam: Present: atraumatic, normocephalic - Eye Eye exam: Present: normal appearance, EOMI - ENT ENT exam: Present: normal orophraynx, normal external ear exam - Neck Neck exam: Present: normal inspection. Absent: meningismus - Respiratory Respiratory exam: Present: normal lung sounds bilaterally. Absent: respiratory distress - Cardiovascular Cardiovascular Exam: Present: regular rate, normal rhythm - GI/Abdominal GI/Abdominal exam: Present: soft, tenderness (Left mid abdomen). Absent: guarding, rebound, pulsatile mass - Extremities Exam Extremities exam: Present: normal capillary refill - Back Exam Back exam: Present: CVA tenderness (L) (Mild). Absent: CVA tenderness (R) - Neurological Exam Neurological exam: Present: alert, oriented X3, CN II-XII intact, normal gait. Absent: motor sensory deficit - Psychiatric Psychiatric exam: Present: normal affect, normal mood - Skin Skin exam: Present: warm, dry ED Course Vital Signs 05/02/21 05/02/21 05/02/21 00:45 02:17 04:25 Temperature 98.2 F 98 F 98.6 F Pulse Rate 72 77 68 Respiratory 18 16 16 Rate Blood Pressure 160/90 152/77 164/92 [Right] O2 Sat by Pulse 98 98 Oximetry - Reevaluation(s) Reevaluation #1: 05/02/21 01:01 X-ray and UA were ordered. Analgesics ordered. Old records noted. Reevaluation #2: 05/02/21 03:22 X-ray have been noted. Urine is still pending. Once we receive that, patient will likely be discharged. Reevaluation #3: 05/02/21 04:51 UA was resulted and the patient was discharged ED Medical Decision Making - Radiology Data Radiology results: report reviewed - Medical Decision Making Patient presents with flank pain and urinary symptoms. He does not have evidence of ureteral colic based on his presentation. He does not appear to be septic or toxic. There is no pulsatile mass suggestive of AAA giving him re ferred pain to the flank area. Patient does not have a pulse deficit that would suggest AAA either. He is not having chest pain. Patient does not appear to have any overt urinary tract infection or pyelonephritis based on his UA. He was treated symptomatically for pain and referred for outpatient evaluation and follow-up. There is certainly no peritoneal finding on exam. Critical Care Time: No Critical care attestation.: If time is entered above; I have spent that time in minutes in the direct care of this critically ill patient, excluding procedure time. ED Disposition Clinical Impression: Left flank pain Disposition: 01 HOME / SELF CARE / HOMELESS Is pt being admited?: No Condition: Stable Instructions: Flank Pain, Adult, Pain Without a Known Cause Additional Instructions: Drink plenty water. Strain the urine. Return for problems. Follow-up with your regular doctor or the referral doctor for recheck. Prescriptions: Ibuprofen [Motrin] 600 mg PO Q8H PRN #20 tablet PRN Reason: Pain Referrals: PRIMARY CARE, [Referring] - 3-5 Days SHRADDHA CHIANG MD [Staff Physician] - 3-5 Days
--- NOTE | 2021-05-02 01:35 | XRay Report ---
XR abdomen 1V ap INDICATION / CLINICAL INFORMATION: L flank pain, possible stone. COMPARISON: None available. FINDINGS: TUBES / LINES: None. BOWEL GAS PATTERN: No significant abnormality. Small plate artifact mid left image FREE AIR / EXTRALUMINAL GAS: None seen. ADDITIONAL FINDINGS: No significant additional findings. IMPRESSION: 1. No significant abnormality. No radiographic evidence of urolithiasis. 2. Small plate artifact left mid image. Signer Name: Gary Jiménez II, MD Signed: 05/02/2021 1:31 AM Workstation Name: [id number]
[2021-05-02 04:28] LABS: Bilirubin,Urine NEG (Negative); Blood,Urine NEG (Negative); Color,Urine Yellow (Yellow); Mucus,Urine FEW /HPF; Protein,Urine <15 mg/dL mg/dL (Negative); RBC,Urine < 1.0 /HPF (0.0-6.0)
[2021-05-02 06:33] VITALS: BP 134/87
== END 2021-05-02 06:32 | disposition home or self-care (01) ==
LOC: ED 00:43
DX: R10.9 Unspecified abdominal pain (principal); I10 Essential (primary) hypertension
CPT/HCPCS: 74018; 81001; 96372; 99284; J1885

== ENCOUNTER 2021-06-11 16:05 | Emergency (ER) | payer SELFPAY ==
[2021-06-11 16:34] VITALS: BP 152/87
== END 2021-06-11 17:00 | disposition left against medical advice (07) ==
LOC: ED 16:05
DX: M79.606 Pain in leg, unspecified (principal); Z53.21 Procedure and treatment not carried out due to patient leaving prior to being seen by health care provider